=== PATIENT | female | born 1975 | race Hispanic/Latino ===

== ENCOUNTER → 2021-03-27 | Outpatient (CLI) | payer OTHER | END | disposition home or self-care (01) | LOC: RAH 12:33 | PROVIDERS: ATTEND Internal Medicine | DX: M47.814 Spondylosis without myelopathy or radiculopathy, thoracic region (principal); M47.812 Spondylosis without myelopathy or radiculopathy, cervical region | CPT/HCPCS: 72040; 72072 ==